=== PATIENT | female | born 1995 | race Caucasian/White ===

== ENCOUNTER 2016-10-19 02:38 | Emergency (ER) | payer SELFPAY ==
[~2016-10-19] VITALS: Ht 162.6 cm; Wt 74.5 kg
[2016-10-19 02:42] VITALS: BP 134/88; TEMP 98.3
[2016-10-19] MEDS ORDERED: NORCO 325 MG-51 TAB PO (03:17)
[2016-10-19 03:31] VITALS: PULSE 98
== END 2016-10-19 03:35 | disposition home or self-care (01) ==
LOC: COL.ER 02:38
DX: M23.92 Unspecified internal derangement of left knee (principal); M25.462 Effusion, left knee
CPT/HCPCS: L1830